=== PATIENT | male | born 2000 | race Caucasian/White ===

== ENCOUNTER 2023-12-07 11:36 | Emergency (ER) | payer OTHER ==
[~2023-12-07] VITALS: Ht 175.3 cm; Wt 74.8 kg
[2023-12-07 11:53] VITALS: BP 143/80
[2023-12-07] MEDS ORDERED: Acetaminophen/Aspirin/Caffeine 250/250/65 MG PO ONE (12:20)
== END 2023-12-07 12:35 | disposition home or self-care (01) ==
LOC: ER 11:36
DX: G43.109 Migraine with aura, not intractable, without status migrainosus (principal)
CPT/HCPCS: 99283; A9270